=== PATIENT | female | born 1975 ===

== ENCOUNTER 2018-08-14 15:02 | Emergency (ER) | payer MEDICAID, OTHER ==
[2018-08-14 15:03] VITALS: BMI 36.3
--- NOTE | 2018-08-14 16:38 | ED PDOC ---
HPI: General Adult Time Seen by Provider: 08/14/18 15:40 Chief Complaint (Nursing): Dizziness/Lightheaded Chief Complaint (Provider): Dizziness/Lightheaded History Per: Patient History/Exam Limitations: no limitations Onset/Duration Of Symptoms: Days (x 1 week) Current Symptoms Are (Timing): Still Present Additional Complaint(s): 43 year old female with a history of anemia presents to the ED with dizziness for the last 1 week. Initially, patient reports, she woke up and experienced an intermittent spinning sensation. She also describes lightheadedness and fullness in her head. Currently, the sensation of spinning has resolved but the other symptoms persist. Her PMD prescribed her meclizine without much relief. Denies nausea, vomiting, headache, focal weakness, numbness, difficulty balancing, double vision, other vision changes, tinnitus and ear pain. PMD: Dr. Chacorta Lau Past Medical History Reviewed: Historical Data, Nursing Documentation, Vital Signs Vital Signs: Last Vital Signs Temp 98.9 F 08/14/18 15:32 Pulse 90 08/14/18 15:32 Resp 16 08/14/18 15:32 BP 156/93 H 08/14/18 15:32 Pulse Ox 98 08/14/18 15:32 - Medical History PMH: Anemia - Surgical History Surgical History: Other surgeries: tubal ligation - Family History Family History: States: Diabetes, Hypertension Other Family History: ovarian cancer - Immunization History Hx Tetanus Toxoid Vaccination: No Hx Influenza Vaccination: No Hx Pneumococcal Vaccination: No - Home Medications Home Medications: Ambulatory Orders Medication Instructions Recorded Amoxicillin/Clavulanate [Augmentin 1 tab PO BID 03/17/17 500 MG-125 MG] - Allergies Allergies/Adverse Reactions: Allergies Allergy/AdvReac Type Severity Reaction Status Date / Time No Known Allergies Allergy Verified 08/14/18 15:31 Review of Systems ROS Statement: Except As Marked, All Systems Reviewed And Found Negative Constitutional: Positive for: Other (fullness in head and lightheadedness) Neurological: Positive for: Dizziness. Negative for: Weakness, Incoordination, Headache Physical Exam - Reviewed Nursing Documentation Reviewed: Yes Vital Signs Reviewed: Yes - Physical Exam Appears: Positive for: Well, Non-toxic, No Acute Distress Head Exam: Positive for: ATRAUMATIC, NORMAL INSPECTION, NORMOCEPHALIC Skin: Positive for: Normal Color, Warm, Dry Eye Exam: Positive for: EOMI, PERRL. Negative for: Nystagmus ENT: Positive for: Pharynx Is (clear) Neck: Positive for: Painless ROM, Supple Cardiovascular/Chest: Positive for: Regular Rate, Rhythm. Negative for: Murmur Respiratory: Positive for: Normal Breath Sounds. Negative for: Respiratory Distress Gastrointestinal/Abdominal: Positive for: Soft. Negative for: Tenderness Back: Positive for: Normal Inspection. Negative for: Decreased ROM Extremity: Positive for: Normal ROM. Negative for: Deformity Lymphatic: Negative for: Adenopathy Neurologic/Psych: Positive for: Alert, sound equipment mechanic II-XII (intact), Oriented (x 3), Cerebellar Tests (normal; finger to nose). Negative for: Motor/Sensory Deficits, Other (negative head impulse test; negative test of skew ) - Laboratory Results Result Diagrams: 08/14/18 17:54 08/14/18 17:54 - ECG ECG: Positive for: Interpreted By Me ECG Rhythm: Positive for: Normal QRS, Normal ST Segment, Sinus Rhythm (82) Rate: 82 O2 Sat by Pulse Oximetry: 98 (RA) Pulse Ox Interpretation: Normal Medical Decision Making Medical Decision Makin:08 Impression: non vertiginous dizziness Differential diagnoses include but are not limited to: electrolyte abnormality, anemia, dehydration, brain mass, stress Initial Plan: --Head CT w/o contrast --EKG --CMP --Mag Phos --TSH --Urine preg --Urine dip --CBC --orthostatic BP 16:[address] FINDINGS: HEMORRHAGE: No intracranial hemorrhage. BRAIN: No mass effect or edema. No atrophy or chronic microvascular ischemic changes. VENTRICLES: Unremarkable. No hydrocephalus. CALVARIUM: Unremarkable. PARANASAL SINUSES: Unremarkable as visualized. No significant inflammatory changes. MASTOID AIR CELLS: Unremarkable as visualized. No inflammatory changes. OTHER FINDINGS: There is evidence of a chronic appearing empty sella with homogeneous low density and some mild expansion of the bony sella noted. This is nonspecific. IMPRESSION: No evidence of recent infarct or intracranial hemorrhage. Chronic appearing enlarged empty sella . Labs unremarkable. Findings d/w pt. No acute medical issues requiring intervention in ER or hospi talization. Stable for DC. Concerns/questions addressed and answered. Scribe Attestation: Documented by Tamika West, acting as a scribe for Elida Mullins MD Provider Scribe Attestation: All medical record entries made by the Scribe were at my direction and personally dictated by me. I have reviewed the chart and agree that the record accurately reflects my personal performance of the history, physical exam, medical decision making, and the department course for this patient. I have also personally directed, reviewed, and agree with the discharge instructions and disposition. Disposition - Clinical Impression Clinical Impression: Lightheadedness Counseled Patient/Family Regarding: Studies Performed, Diagnosis, Need For Followup - Disposition Referrals: [facility] [Outside] Disposition: Routine/Home Disposition Time: 19:09 Condition: STABLE Additional Instructions: VISITA REINA DOCTOR O [facility] EN 2-3 GREGORY A CHEQAR DE NUEVO DESCANSE Y LD MUCHO FLUIDOS Instructions: Dizziness, Nonvertigo, (DC) Forms: [facility] ED School/Work Excuse Print Language: HUNGARIAN
--- NOTE | 2018-08-14 17:00 | CT ---
Date of service: 08/14/2018 PROCEDURE: CT HEAD WITHOUT CONTRAST. HISTORY: dizziness lightheadedness COMPARISON: None available. TECHNIQUE: Axial computed tomography images were obtained through the head/brain without intravenous contrast. Radiation dose: Total exam DLP = 782 mGy-cm. This CT exam was performed using one or more of the following dose reduction techniques: Automated exposure control, adjustment of the mA and/or kV according to patient size, and/or use of iterative reconstruction technique. FINDINGS: HEMORRHAGE: No intracranial hemorrhage. BRAIN: No mass effect or edema. No atrophy or chronic microvascular ischemic changes. VENTRICLES: Unremarkable. No hydrocephalus. CALVARIUM: Unremarkable. PARANASAL SINUSES: Unremarkable as visualized. No significant inflammatory changes. MASTOID AIR CELLS: Unremarkable as visualized. No inflammatory changes. OTHER FINDINGS: There is evidence of a chronic appearing empty sella with homogeneous low density and some mild expansion of the bony sella noted. This is nonspecific. IMPRESSION: No evidence of recent infarct or intracranial hemorrhage. Chronic appearing enlarged empty sella .
[2018-08-14 18:00] LABS: BASO % 0.8 % (0.0-2.0); EOS # 0.1 K/uL (0.0-0.7); EOS % 1.1 % (0.0-4.0); LYMPH # 2.1 K/uL (1.0-4.3); MEAN CELL VOLUME 89.8 fl (81.0-99.0); MEAN CORPUSCULAR HEMOGLOBIN 29.3 pg (27.0-31.0); MEAN CORPUSCULAR HGB CONC 32.7 g/dL (33.0-37.0); MONO # 0.5 K/uL (0.0-0.8); MONO % 8.8 % (0.0-10.0); NEUT # 2.7 K/uL (1.8-7.0); NEUT % 50.3 % (50.0-75.0); RBC 4.43 Mil/uL (3.80-5.20); RED CELL DISTRIBUTION WIDTH 15.7 % (11.5-14.5); WHITE BLOOD COUNT 5.4 K/uL (4.8-10.8)
[2018-08-14 18:15] LABS: ALB/GLOB RATIO 0.9 (1.0-2.1); ALBUMIN 4.2 g/dL (3.5-5.0); ALT/SGPT 34 U/L (9-52); AST/SGOT 34 U/L (14-36); BLOOD UREA NITROGEN 12 mg/dl (7-17); GFR NON-AFRICAN AMERICAN > 60
[2018-08-14 19:35] VITALS: BP 122/72; PULSE 72; RESP 17; TEMP 97.9; O2SAT 100
--- NOTE | 2018-08-14 21:57 | CARD ---
APPROVED REPORT Date of service: 08/14/2018 EKG Measurement Heart [id number] <Conclusion> Normal sinus rhythm with sinus arrhythmia Normal ECG
== END 2018-08-14 19:34 | disposition home or self-care (01) ==
LOC: H.ER 15:02
DX: R42 Dizziness and giddiness (principal); D64.9 Anemia, unspecified